=== PATIENT | male | born 1990 | race Caucasian/White ===

== ENCOUNTER 2019-07-04 17:21 | Inpatient (IN) ==
[2019-07-04] MEDS ORDERED: Clindamycin 900 MG/50 ML 900 MG/50 ML IV.SOLN IVPB ONE (17:48)
[2019-07-04 18:23] LABS: Hematocrit 51.5 % (37.5-50.1); Hemoglobin 15.9 g/dL (12.9-16.9); Mean Corpuscular HGB Conc 30.9 g/dL (31.6-35.5); Mean Corpuscular Hemoglobin 27.4 pg (28.0-33.3); Mean Corpuscular Volume 88.8 fL (83.0-100.0); Platelet Count 293 K/mcL (140-400); Red Cell Distribution Width 14.7 % (11.5-14.5); White Blood Count 7.7 K/mcL (4.3-11.1)
[2019-07-04] MEDS ORDERED: Ondansetron 4 MG/2 ML VIAL IVP PRN (18:33)
[2019-07-04 18:41] LABS: BUN/Creatinine Ratio 9 (6-26); Blood Urea Nitrogen 10 mg/dL (6-20); Carbon Dioxide 26 mEq/L (23-29); Chloride 107 mEq/L (98-107); Glucose 88 mg/dL (70-105); Osmolality,Calculated 288 (280-300); Potassium 4.1 mEq/L (3.5-5.1); Sodium 140 mEq/L (136-145); eGFR For African Americans > 60 (> 60); eGFR For Non-African Americans > 60 (> 60)
[2019-07-04] MEDS: 0.9 % Sodium Chloride 1,000 ML IVC SCH (19:59)
[2019-07-04] MEDS: *HR* Heparin 5,000 UNIT/ML VIAL SQ SCH (19:59)
[2019-07-05] MEDS: *HR* Heparin 5,000 UNIT/ML VIAL SQ SCH ×3 (05:04→23:25)
[2019-07-05] MEDS ORDERED: *HR* Midazolam HCl 2 MG/2 ML VIAL ONE (10:26)
[2019-07-05] MEDS ORDERED: *HR* FentaNYL (PF) 100 MCG/2 ML VIAL ONE (10:26)
[2019-07-05] MEDS ORDERED: *HR* HYDROMORPHONE 2 MG/ML VIAL ONE (10:26)
[2019-07-05] MEDS ORDERED: *HR* Propofol 200 MG/20 ML VIAL IVP ONE (10:27)
[2019-07-05] MEDS ORDERED: Dexamethasone 4 MG/ML VIAL ONE (10:27)
[2019-07-05] MEDS ORDERED: Ondansetron 4 MG/2 ML VIAL ONE (10:27)
[2019-07-05] MEDS ORDERED: Lidocaine -MPF 2% 2 ML VIAL ONE (10:28)
[2019-07-05] MEDS ORDERED: *HR* Rocuronium Bromide 50 MG/5 ML VIAL ONE ×2 (10:28→11:53)
[2019-07-05] MEDS ORDERED: *HR* Succinylcholine 200 MG/10 ML VIAL IVP ONE (10:28)
[2019-07-05] MEDS ORDERED: Lidocaine -MPF 4% 5 ML AMPUL ONE (10:28)
[2019-07-05] MEDS ORDERED: Acetaminophen IV 1,000 MG/100 ML INFUS..BTL ONE (10:51)
[2019-07-05] MEDS ORDERED: Clindamycin 900 MG/50 ML 900 MG/50 ML IV.SOLN IVPB ONE (11:32)
[2019-07-05] MEDS ORDERED: *HR* PHENYLEPHRINE 1,000 MCG/10 ML SYRINGE IVP ONE (11:43)
[2019-07-05] MEDS ORDERED: *HR* Phenylephrine 10 MG/ML VIAL ONE (12:39)
[2019-07-05] MEDS: Ondansetron 4 MG/2 ML VIAL IVP PRN (14:25)
[2019-07-05] MEDS: 0.9 % Sodium Chloride 1,000 ML IVC SCH ×2 (14:25→23:21)
[2019-07-05] MEDS: Morphine PCA 30 MG/ 30 ML 30 ML PCA.VIAL IVC PRN (14:35)
[2019-07-05] MEDS: Ipratropium/Albuterol Neb 3 ML IH SCH ×3 (16:02→23:50)
[2019-07-05] MEDS: Ketorolac 15 MG/ML VIAL IVP SCH ×2 (16:32→23:41)
[2019-07-06] MEDS: Ipratropium/Albuterol Neb 3 ML IH SCH ×6 (03:43→23:40)
[2019-07-06 04:44] LABS: Hematocrit 47.7 % (37.5-50.1); Hemoglobin 14.5 g/dL (12.9-16.9); Mean Corpuscular HGB Conc 30.4 g/dL (31.6-35.5); Mean Corpuscular Volume 92.1 fL (83.0-100.0); Mean Platelet Volume 11.6 fL (9.4-12.4); Platelet Count 256 K/mcL (140-400); Red Blood Count 5.18 M/mcL (4.19-5.50); Red Cell Distribution Width 14.8 % (11.5-14.5)
[2019-07-06] MEDS: 0.9 % Sodium Chloride 1,000 ML IVC SCH ×3 (04:53→17:28)
[2019-07-06 04:55] LABS: White Blood Count 11.7 K/mcL (4.3-11.1)
[2019-07-06 05:04] LABS: % Iron Saturation 10 % (20-55); BUN/Creatinine Ratio 13 (6-26); Blood Urea Nitrogen 15 mg/dL (6-20); Calcium 8.5 mg/dL (8.6-10.3); Carbon Dioxide 22 mEq/L (23-29); Chloride 106 mEq/L (98-107); Glucose 145 mg/dL (70-105); Iron 35 mcg/dL (65-175); Osmolality,Calculated 287 (280-300); Potassium 4.9 mEq/L (3.5-5.1); Sodium 137 mEq/L (136-145); Transferrin 239 mg/dL (203-362); eGFR For African Americans > 60 (> 60); eGFR For Non-African Americans > 60 (> 60)
[2019-07-06] MEDS: *HR* Heparin 5,000 UNIT/ML VIAL SQ SCH ×3 (05:44→21:49)
[2019-07-06] MEDS: Ketorolac 15 MG/ML VIAL IVP SCH ×3 (05:44→17:28)
[2019-07-06] MEDS: Pantoprazole 40 MG VIAL IVP SCH (07:58)
[2019-07-06] MEDS ORDERED: Iron Sucrose Complex 400 MG in 0.9 % Sodium Chloride 250 ML IVPB ONE (08:39)
[2019-07-06] MEDS ORDERED: Folic Acid 1 MG in 0.9 % Sodium Chloride 50 ML IVPB ONE (08:42)
[2019-07-06] MEDS ORDERED: Thiamine (B-1) 100 MG, Folic Acid 1 MG in 0.9 % Sodium Chloride 50 ML IVPB ONE (08:42)
[2019-07-06] MEDS: Nicotine 14 MG PATCH.TD24 TD SCH (12:15)
[2019-07-06] MEDS ORDERED: Tranexamic Acid 1,000 MG in 0.9 % Sodium Chloride 250 ML IVPB ONE (18:00)
[2019-07-07] MEDS: Ketorolac 15 MG/ML VIAL IVP SCH ×4 (00:36→18:09)
[2019-07-07] MEDS: 0.9 % Sodium Chloride 1,000 ML IVC SCH ×3 (00:39→18:09)
[2019-07-07] MEDS: *HR* Heparin 5,000 UNIT/ML VIAL SQ SCH ×3 (02:15→21:13)
[2019-07-07] MEDS: Ipratropium/Albuterol Neb 3 ML IH SCH ×6 (04:28→23:48)
[2019-07-07] MEDS: Nicotine 14 MG PATCH.TD24 TD SCH (08:36)
[2019-07-07] MEDS: Pantoprazole 40 MG VIAL IVP SCH (08:40)
[2019-07-07] MEDS: Morphine PCA 30 MG/ 30 ML 30 ML PCA.VIAL IVC PRN (21:06)
[2019-07-08] MEDS: Ketorolac 15 MG/ML VIAL IVP SCH ×4 (00:10→17:28)
[2019-07-08] MEDS: 0.9 % Sodium Chloride 1,000 ML IVC SCH ×3 (02:15→18:25)
[2019-07-08] MEDS: Ipratropium/Albuterol Neb 3 ML IH SCH ×5 (03:58→20:17)
[2019-07-08 05:16] LABS: Hematocrit 34.2 % (37.5-50.1); Hemoglobin 10.3 g/dL (12.9-16.9); Mean Corpuscular HGB Conc 30.1 g/dL (31.6-35.5); Mean Corpuscular Hemoglobin 28.4 pg (28.0-33.3); Mean Corpuscular Volume 94.2 fL (83.0-100.0); Mean Platelet Volume 10.6 fL (9.4-12.4); Platelet Count 211 K/mcL (140-400); Red Blood Count 3.63 M/mcL (4.19-5.50); Red Cell Distribution Width 15.3 % (11.5-14.5); White Blood Count 8.7 K/mcL (4.3-11.1)
[2019-07-08 05:37] LABS: BUN/Creatinine Ratio 18 (6-26); Blood Urea Nitrogen 16 mg/dL (6-20); Calcium 8.2 mg/dL (8.6-10.3); Carbon Dioxide 27 mEq/L (23-29); Chloride 108 mEq/L (98-107); Glucose 80 mg/dL (70-105); Osmolality,Calculated 290 (280-300); Potassium 4.4 mEq/L (3.5-5.1); Sodium 140 mEq/L (136-145); eGFR For African Americans > 60 (> 60); eGFR For Non-African Americans > 60 (> 60)
[2019-07-08] MEDS: *HR* Heparin 5,000 UNIT/ML VIAL SQ SCH ×2 (05:44→14:27)
[2019-07-08] MEDS: Pantoprazole 40 MG VIAL IVP SCH (08:28)
[2019-07-08] MEDS: Nicotine 14 MG PATCH.TD24 TD SCH (08:29)
[2019-07-08] MEDS: *HR* HYDROmorphone 2 MG/ML SYRINGE IVP PRN ×2 (11:03→20:21)
[2019-07-09] MEDS: Ketorolac 15 MG/ML VIAL IVP SCH ×4 (00:13→17:49)
[2019-07-09] MEDS: *HR* Heparin 5,000 UNIT/ML VIAL SQ SCH ×4 (00:14→20:44)
[2019-07-09] MEDS: Ipratropium/Albuterol Neb 3 ML IH SCH ×4 (00:15→11:44)
[2019-07-09] MEDS: 0.9 % Sodium Chloride 1,000 ML IVC SCH ×2 (01:05→10:32)
[2019-07-09] MEDS: Morphine PCA 30 MG/ 30 ML 30 ML PCA.VIAL IVC PRN (08:25)
[2019-07-09] MEDS: Nicotine 14 MG PATCH.TD24 TD SCH (08:25)
[2019-07-09] MEDS: Pantoprazole 40 MG VIAL IVP SCH (08:25)
[2019-07-09] MEDS ORDERED: *HR* HYDROcodone/Acet 5/325 mg TABLET PO PRN (12:23)
[2019-07-09] MEDS: Gabapentin 300 MG CAPSULE PO SCH ×2 (15:38→20:44)
[2019-07-09] MEDS: Acetaminophen/Aspirin/Caffeine TABLET PO PRN (20:44)
[2019-07-10] MEDS: Ondansetron 4 MG/2 ML VIAL IVP PRN (03:52)
[2019-07-10] MEDS: Acetaminophen/Aspirin/Caffeine TABLET PO PRN (03:56)
[2019-07-10] MEDS: *HR* Heparin 5,000 UNIT/ML VIAL SQ SCH (06:00)
[2019-07-10] MEDS: Gabapentin 300 MG CAPSULE PO SCH (07:39)
[2019-07-10] MEDS: Nicotine 14 MG PATCH.TD24 TD SCH (07:39)
[2019-07-10 07:56] VITALS: BP 122/74
== END 2019-07-10 09:33 | disposition home or self-care (01) | DRG 164 ==
LOC: EMEROOARM 17:21 → 3ANU 17:21 → ICNU 07-05 10:38 → 3NENU 07-09 23:08
PROVIDERS: ADMIT Internal Medicine; ATTEND Internal Medicine